=== PATIENT | female | born 1970 | race Caucasian/White ===

== ENCOUNTER → 2016-06-06 | Outpatient (CLI) | payer OTHER ==
[2015-10-03 06:39] VITALS: BP 154/71
[~2016-06-06] MED LIST: AZIT250T6 PO; CHOL400T4 PO; CITA20TA5 PO; CLON0.5T3 PO; HUM100VI SQ; LISI40TA PO; METF10002 PO; MULT1TAB52 PO; OMEG500C PO; SIMV20TA3 PO; TRAZ100T12 PO
--- NOTE | 2016-06-06 13:32 | KCIC ---
PROCEDURE MRI lumbar spine without contrast. HISTORY Low back pain with right radiculopathy. Symptoms for over a year. Repetitive lifting. TECHNIQUE Sagittal T1, sagittal T2, sagittal STIR, axial T1, and axial T2 sequences are provided. COMPARISON None. FINDINGS There is no malalignment. There is no marrow edema. There is no worrisome marrow lesion. There is diffuse disc desiccation. There are a few small Schmorl's nodes. There is narrowing of the interspace at L4-L5. The conus medullaris is normal in signal intensity and in position. Subcutaneous edema is noted. The numbering system assumes 5 lumbar type vertebral bodies. Findings by individual level are as follows: L1-L2: There is no canal or foraminal compromise. L2-L3: There is no canal or foraminal compromise. L3-L4: There is minimal facet hypertrophy without canal or foraminal compromise. L4-L5: There is a diffuse disc bulge. There is a right paracentral protrusion measuring 13 millimeters at its base and measuring 4 millimeters in height. This results in mild right lateral recess narrowing. Midline AP diameter of the thecal sac is 9 millimeters. There is mild to moderate right and minimal left foraminal narrowing. L5-S1: Disc bulge and minimal facet hypertrophy are noted without canal or foraminal compromise. IMPRESSION Degenerative disc disease and herniation at L4-L5 with mild canal stenosis and right lateral recess narrowing. Electronically signed by: Florencio Cage MD (Jun 06, 2016 13:31:29)
== END | disposition home or self-care (01) ==
LOC: KCIC MRI 10:57
PROVIDERS: ATTEND Nurse Practitioner Family
DX: M51.36 Other intervertebral disc degeneration, lumbar region (principal); M48.06 Spinal stenosis, lumbar region
CPT/HCPCS: 72148

== ENCOUNTER → 2016-06-24 | Outpatient (CLI) | payer OTHER ==
[2015-10-03 06:39] VITALS: BP 154/71
[~2016-06-24] MED LIST changes: +ATOR10TA60 PO; +CELE200C PO; +CYCL5TAB PO; +DIVA500T2 PO; +IOHEXOL 180 MG/ML 10 ML VIAL. ONE; +METF-620 PO; -METF10002 PO; +OXYB5TAB7 PO; +RISP0.2519 PO; +TRAM50TA PO; +methylPREDNISolone ACETATE 40 MG/ML VIAL. ONE; +methylPREDNISolone ACETATE 80 MG/ML VIAL. ONE
--- NOTE | 2016-06-25 01:53 | PAIN ---
DATE OF SERVICE: 06/24/2016 INITIAL CONSULTATION FOR PAIN CLINIC CHIEF COMPLAINT: Low back and right lower extremity pain. HISTORY OF PRESENT ILLNESS: This is a 45-year-old female who presents with history of pain, low back, right leg for about a year, worse over the past few months, now becoming more noticeable, low back pain radiating to bilateral posterior gluteus, posterior right gluteus, posterior right thigh, posterior right knee, posterior right calf, also anterior thigh on the right, medial thigh and groin at the medial lower leg to the ankle as well. The patient reports no radiation to the left lower extremity, but across the low back is painful right and left. The patient reports no specific injury or action that she is aware of, but the pain began to increase on its own. Describes it as constant, sharp, throbbing and shooting with radiating pain, numbness, tingling, aching and cramping. Does not awaken her from sleep; however, is much better with lying down, not affect her bowel or bladder control, but does affect her ability to walk, worse with standing and walking, also sitting for prolonged periods such as riding in a car for a long time, an hour or so, exacerbates the pain as well, mostly with standing and walking. The patient reports her disability rating from 0 to 10, 10 being the worst, is a 5 with recreation and sexual behavior, 4 with social activities, 7 with occupation, 2 with self care and 2 with life support activities. The patient did have MRI scan of the lumbar spine showing L4-L5 right paracentral protrusion measuring 13 mm ____, measuring 4 mm in height resulting in mild right lateral recess narrowing, mild to moderate right and minimal left foraminal narrowing with L5-S1 disk bulge with minimal narrowing as well. PAST MEDICAL HISTORY: Significant for type 2 diabetes mellitus, insulin-dependent; asthma, hypertension, diarrhea, arthritis, bipolar disorder, difficulty with balance, recent urinary tract infections. PREVIOUS SURGERY: Include tonsillectomy, wisdom teeth extraction, D and C in the past. CURRENT MEDICATIONS: Include trazodone, vitamin D, insulin, simvastatin, multivitamins, metformin, omega fish oils, clonazepam, lisinopril, and citalopram as well as azithromycin. ALLERGIES: THE PATIENT IS ALLERGIC TO PENICILLIN, KEFLEX, SULFA. FAMILY HISTORY: Significant for depression, hypertension, diabetes, heart disease, cancer, stroke, and hypercholesterolemia. SOCIAL HISTORY: The patient does not smoke, does not drink alcohol, is , lives with her spouse and one child, living at home, lives locally in [place], [place]. REVIEW OF SYSTEMS: The patient's review of systems is positive for those items mentioned in history of present illness. All systems reviewed and otherwise negative. It is complete, full and well documented on the patient's chart. PHYSICAL EXAMINATION: VITAL SIGNS: Today, the patient's blood pressure is 126/86, pulse 101, respirations 16, temperature is 97.8 degrees Fahrenheit, height is 5 feet 6 inches, weight is 240 pounds. GENERAL: The patient is awake, alert, oriented, appropriate, very pleasant demeanor. HEENT: Head shows normocephalic, atraumatic. Extraocular movements are intact and symmetrical. Oral cavity, mucous membranes are moist and pink. Dentition is intact. NECK: Shows anterior throat supple without palpable lymphadenopathy noted. Swallow reflex is symmetrical. CHEST: Shows normal on inspection. Breath sounds clear to auscultation bilaterally. HEART: Shows S1 and S2 clear. No murmurs auscultated. ABDOMEN: Obese, soft, nontender, nondistended. No palpable organomegaly. No rebound or guarding demonstrated. BACK: Shows spine grossly midline. Normal appearing thoracic kyphosis and lumbar lordotic curvature is noted. No previous bruises, lesions, rashes or scars are demonstrated. Lumbar paraspinous musculature shows symmetrical on inspection without atrophy, hypertrophy. With palpation shows some mild to moderate tenderness in the lower lumbar distribution, slightly more on the right than the left, but present bilaterally symmetrical. Normal muscle girth is firm without abnormalities. No tenderness over the sacrum or the sacroiliac regions. No tenderness over the spinous processes. The patient shows good rotation and motion of the lumbar spine, both laterally greater than 10 degrees right and left, as well as extension greater than 10 degrees, forward flexion 45 degrees without significant pain reported. Lower extremities showed deep tendon reflexes at 1+ in the patellar and tendo calcaneus tendons are equal. Motor exam is strong with 5/5 dorsiflexion, extension, quadriceps and hamstring flexion. Peripheral pulses are 2+ posterior tibial and dorsalis pedis pulses. No peripheral edema is noted. No clubbing, no cyanosis. Straight leg raise noted to be positive on the right at about 40 degrees, which is decreased with knee flexion, left side is negative. Gaenslen's and Prince's maneuvers are negative bilaterally. IMPRESSION: 1. This is a 45-year-old female with about one year history of increasing pain in low back, right lower extremity, worse over the past month or so. 2. MRI scan as noted. 3. Diabetes. 4. Hypertension. 5. Arthritis. PLAN: Options were discussed with the patient including conservative medical management, physical therapy, interventional techniques. She would like to pursue interventional techniques as she has done some physical therapy already without significant improvement. We discussed the lumbar epidural steroid injection using description as well as anatomical models to describe the procedure. Risks were then discussed including, but not limited to bleeding, infection, possibility of epidural hematoma, subsequent neurologic compromise, dural puncture, headaches, spinal cord and/or nerve damage, side effects of steroid medication and poor results regarding pain control. The patient understands and wishes to proceed. The patient will return to clinic in approximately 2 weeks for followup. She was counseled as to return appointment, activity level and side effects to be aware of. DIAGNOSES: Lumbar radiculopathy with lumbar degenerative disk disease and lumbar herniated disk. PROCEDURE: Lumbar epidural steroid injection in translaminar approach at the L4-L5 level using C-arm fluoroscopic guidance under sterile prep and drape using local anesthetic. MEDICATIONS INJECTED: 120 mg of Depo-Medrol plus 10 mL preservative free normal saline and 2 mL of Isovue for contrast. CONDITION AT DISCHARGE: Stable. The patient tolerated procedure well, had no complications. DEREK CHUN MD DR: ANDREAS/florentin JOB#: [id number] / [id number]
== END | disposition home or self-care (01) ==
LOC: PNCL 09:41
PROVIDERS: ATTEND Anesthesiology
DX: E11.9 Type 2 diabetes mellitus without complications (principal); I10 Essential (primary) hypertension; M19.90 Unspecified osteoarthritis, unspecified site; Z83.3 Family history of diabetes mellitus; Z82.3 Family history of stroke; Z82.49 Family history of ischemic heart disease and other diseases of the circulatory system
CPT/HCPCS: 62323; J1030; J1040

== ENCOUNTER → 2017-01-23 | Outpatient (CLI) | payer OTHER ==
[2015-10-03 06:39] VITALS: BP 154/71
[~2017-01-23] MED LIST changes: -CHOL400T4 PO; +CHOL400T55 PO; -IOHEXOL 180 MG/ML 10 ML VIAL. ONE; -methylPREDNISolone ACETATE 40 MG/ML VIAL. ONE; -methylPREDNISolone ACETATE 80 MG/ML VIAL. ONE
--- NOTE | 2017-01-23 14:07 | KCIC ---
Indication: Productive cough. Time of exam 1:33 PM No prior studies are available for comparison. FINDINGS: The heart size is normal. The lungs are clear. No pleural effusion or pneumothorax is identified. The pulmonary vascularity is normal. IMPRESSION: No acute abnormality detected. Electronically signed by: Aravind Lizarraga MD (01/23/2017 2:04 PM) [id number]
== END | disposition home or self-care (01) ==
LOC: KCIC 13:13
PROVIDERS: ATTEND Nurse Practitioner Family
DX: J40 Bronchitis, not specified as acute or chronic (principal)
CPT/HCPCS: 71020

== ENCOUNTER → 2017-04-26 | Outpatient (CLI) | payer OTHER | END | disposition home or self-care (01) | LOC: KCIC MAMMO 10:56 | DX: Z12.31 Encounter for screening mammogram for malignant neoplasm of breast (principal) | CPT/HCPCS: 77067 ==

== ENCOUNTER → 2017-05-10 | Outpatient (CLI) | payer OTHER | END | disposition home or self-care (01) | LOC: KCIC US 09:49 | DX: N60.02 Solitary cyst of left breast (principal) | CPT/HCPCS: 76641 ==